=== PATIENT | female | born 1960 | race Caucasian/White ===

== ENCOUNTER → 2017-02-26 | Outpatient (CLI) | payer OTHER ==
[~2017-02-26] MED LIST: ACETAMINOPHEN W1 TA6 PO; BENICAR20 MG PO; DEXILANT60 MG PO; ENABLEX7.5 MG PO; KLOR-CON 1010 MEQ PO; NEXIUM40 MG PO; NORCO 325 MG-51 TAB PO; NORCO 325 MG-7.1 TAB PO; OMEGA 31000 MG PO; PRISTIQ100 MG PO; PRISTIQ50 M1 PO; TRICOR145 MG PO; VALIUM5 MG PO; VITAMIN C500 MG PO; ZOCOR20 MG PO
== END ==
LOC: MC.RAD 07:20
DX: Z12.31 Encounter for screening mammogram for malignant neoplasm of breast (principal)

== ENCOUNTER → 2018-02-27 | Outpatient (CLI) | payer OTHER | LOC: MC.RAD 07:40 | DX: Z12.31 Encounter for screening mammogram for malignant neoplasm of breast (principal) ==

== ENCOUNTER → 2019-02-28 | Outpatient (CLI) | payer OTHER | LOC: MC.RAD 07:45 | DX: Z12.31 Encounter for screening mammogram for malignant neoplasm of breast (principal) ==

== ENCOUNTER → 2022-01-20 | Outpatient (CLI) | payer OTHER | LOC: COL.RAD 07:49 | DX: D32.0 Benign neoplasm of cerebral meninges (principal) | CPT/HCPCS: A9575 ==